=== PATIENT | male | born 1985 | race Caucasian/White ===

== ENCOUNTER 2017-04-26 18:29 | Emergency (ER) | payer SELFPAY ==
[~2017-04-26] VITALS: Ht 172.7 cm; Wt 67.0 kg
[2017-04-26 18:31] VITALS: BP 129/88; PULSE 88; RESP 18; TEMP 97.8; O2SAT 94
[2017-04-26] MEDS ORDERED: LIDOCAINE HCL 1% 50 ML VIAL INFIL ONE (18:45)
--- NOTE | 2017-04-26 18:55 | PD ---
HPI Chief Complaint: Injury Time Seen by Provider: 18:33 Travel History International Travel<30 days: No Contact w/Intl Traveler<30days: No Traveled to known affect area: No History of Present Illness HPI 32-year-old male complains of right shoulder pain. Patient complains basketball and fell on his right shoulder. Patient denies loss of consciousness. Patient denies any headache or neck pain. Patient denies any other injury. Patient states the pain is sharp pain localized to right shoulder. Patient denies any pain radiation. On a scale of 1-10 the pain is a 10. PFSH Social History Alcohol Use: No Tobacco Use: Yes (ppd) Substance Use: No Allergies-Medications (Allergen,Severity, Reaction): Coded Allergies: No Known Allergies (Verified , 05/08/15) Reported Meds & Prescriptions Reported Meds & Active Scripts Active Review of Systems General / Constitutional: No: Fever Eyes: No: Visual changes HENT: No: Headaches Cardiovascular: No: Chest Pain or Discomfort Respiratory: No: Shortness of Breath Gastrointestinal: No: Abdominal Pain Genitourinary: No: Dysuria Musculoskeletal: Positive: Pain Skin: No Rash Neurologic: No: Weakness Psychiatric: No: Depression Endocrine: No: Polydipsia Hematologic/Lymphatic: No: Easy Bruising Physical Exam Narrative GENERAL: Well-nourished, well-developed patient. SKIN: Focused skin assessment warm/dry. HEAD: Normocephalic. EYES: No scleral icterus. No injection or drainage. NECK: Supple, trachea midline. No JVD or lymphadenopathy. CARDIOVASCULAR: Regular rate and rhythm without murmurs, gallops, or rubs. RESPIRATORY: Breath sounds equal bilaterally. No accessory muscle use. GASTROINTESTINAL: Abdomen soft, non-tender, nondistended. MUSCULOSKELETAL: No cyanosis, or edema. Obvious deformity right shoulder joint with indentation below the acromion point. Sensorimotor function distally intact. BACK: Nontender without obvious deformity. No CVA tenderness. Neurologic exam normal. Data Data Last Documented VS Vital Signs Date Time Temp Pulse Resp B/P (MAP) Pulse Ox O2 Delivery O2 Flow Rate FiO2 04/26/17 18:47 Room Air 04/26/17 18:31 97.8 88 18 129/88 (102) 94 Orders Orders Lidocaine 1% Inj (50 Ml) (Xylocaine 1% I (04/26/17 18:45) Shoulder, Limited(2vws) (04/26/17 18:44) MDM Medical Decision Making Medical Screen Exam Complete: Yes Emergency Medical Condition: Yes Differential Diagnosis Differential diagnosis including dislocation, fracture. Narrative Course 32-year-old male with right shoulder dislocation. Procedures Procedure Narrative 10 cc of 1% lidocaine right shoulder joint injection. Traction reduction technique applied the right arm. Right shoulder dislocation was reduced. Sling -and-swathe applied. Diagnosis Primary Impression: Dislocation of right shoulder joint Qualified Codes: S43.004A - Unspecified dislocation of right shoulder joint, initial encounter Patient Instructions: General Instructions Additional Instructions: Icepack as needed. Take medication as needed for pain. Follow-up with orthopedist. Med/Other Pt SpecificInfo: Prescription(s) given Disposition: 01 DISCHARGE HOME Condition: Stable Daniel Ding MD Apr 26, 2017 18:55
--- NOTE | 2017-04-26 19:33 | RADRPT ---
EXAM DATE/TIME: 04/26/2017 18:56 [facility] COMPARISON: No previous studies available for comparison. INDICATIONS : Post reduction. MEDICAL HISTORY : None. SURGICAL HISTORY : None. ENCOUNTER: Initial ACUITY: 1 day PAIN SCORE: 10/10 LOCATION: Right Shoulder. FINDINGS: Two view examination of the right shoulder demonstrates no evidence of fracture or dislocation. The glenohumeral and acromioclavicular joints are maintained. Bony mineralization is normal. CONCLUSION: 1. Currently no dislocation of the right shoulder. No acute fracture. Elgin Zamora MD on April 26, 2017 at 19:31 Board Certified Radiologist. This report was verified electronically.
== END 2017-04-26 20:00 | disposition home or self-care (01) ==
LOC: NEPC 18:29
DX: S43.004A Unspecified dislocation of right shoulder joint, initial encounter (principal); F17.200 Nicotine dependence, unspecified, uncomplicated; W19.XXXA Unspecified fall, initial encounter; Y93.67 Activity, basketball
CPT/HCPCS: 23650; 73030